=== PATIENT | male | born 1965 | race Hispanic/Latino ===

== ENCOUNTER 2020-09-06 08:29 | Day surgery (SDC) | payer OTHER ==
[~2020-09-06 08:29] MED LIST: ALBUMIN (HUMAN) 25% 200 ML IV ONE
[2020-09-06 09:05] VITALS: BP 150/87
[2020-09-06 09:33] LABS: MEAN CORPUSCULAR HEMOGLOBIN 30.7 pg (27.0-33.0); MEAN CORPUSCULAR HGB CONC 34.1 g/dL (32.0-36.0); PLATELET COUNT (AUTO) 41 K/uL (130-400); RED CELL DISTRIBUTION WIDTH 14.8 % (11.0-15.5); WHITE BLOOD COUNT (AUTO) 6.6 K/uL (4.8-10.8)
[2020-09-06 09:43] LABS: INR 1.14 (0.85-1.15); PROTHROMBIN TIME 12.1 SEC (9.6-11.6)
[2020-09-06 09:46] LABS: BILIRUBIN,TOTAL 1.5 mg/dL (0.2-1.0); CREATININE 2.1 mg/dL (0.5-1.5); TOTAL PROTEIN, SERUM 6.1 g/dL (6.0-8.3)
[2020-09-06 09:59] LABS: EOSINOPHILS % (MANUAL) 3 % (1-6); LYMPHOCYTES % (MANUAL) 17 % (22-44); MAN.DIFF COMMENT-IMPRESSION MANUAL DIFFERENTIAL; MONOCYTES % (MANUAL) 7 % (2-9); PLATELET MORPHOLOGY COMMENT MARKED DECREASE; SEGMENTED NEUTROPHILS % 73 % (40-70)
[2020-09-06 13:30] VITALS: BP 128/77
[2020-09-06 18:53] LABS: APPEARANCE BODY FLUID SLIGHTLY CLOUDY (CLEAR); BODY FLUID WBC 76 /cu. mm.; COLOR,BODY FLUID YELLOW (LT YELLOW); SPECIMENTYPE,BODY FLUID ASCITES; TOTAL VOLUME,BODY FLUID 7500 mL
[2020-09-06 18:54] LABS: BODY FLUID RBC 247 /cu. mm.
[2020-09-06 18:56] LABS: BF LYMPHOCYTE 40 %; BF MESOTHELIAL 39 %; BF MONOCYTE 1 %
== END 2020-09-06 13:55 | disposition home or self-care (01) ==
LOC: DAH 08:29
PROVIDERS: ATTEND Internal Medicine Gastroenterology
DX: R18.8 Other ascites (principal); K74.60 Unspecified cirrhosis of liver
CPT/HCPCS: 36415; 36430; 49083; 80053; 82948; 85025; 85610; 86850; 86900; 86901; 89051; A4215 ×3; A4216; A4221; A4222; A4223 ×2; A4606; A4663; P9034 ×2; P9046; 96365; C1729